=== PATIENT | female | born 1960 | race Caucasian/White ===

== ENCOUNTER 2018-05-03 12:08 | Emergency (ER) | payer OTHER, SELFPAY ==
[2018-05-03 12:21] VITALS: BP 137/74; PULSE 89; RESP 18; TEMP 36.5; O2SAT 98
--- NOTE | 2018-05-03 13:18 | ED.GENADUL_ITS ---
Discharge Plan Disposition Patient Disposition: HOME Condition: Improving Discharge Details Chief Complaint: Orthopedic Clinical Impression: Left anterior shoulder pain Primary Care Provider: Alex Flores ED Provider: Alex Villarreal Home Meds and New Rx's Prescriptions: Continued pravastatin 40 MG tablet 40 mg PO HS RF: 0 clopidogrel [Plavix] 75 MG tablet 75 mg PO DAILY RF: 0 omeprazole [Prilosec] 40 MG capsule,delayed release(DR/EC) 40 mg PO DAILY RF: 0 metoprolol tartrate 25 MG tablet 25 mg PO BID RF: 0 oxycodone-acetaminophen 1 EACH tablet 1 - 2 ea PO Q6H PRN PRN (Reason: Pain) Qty: 20 RF: 0 clonazepam [Klonopin] 1 MG tablet 1 mg PO BID PRNRF: 0 Discharge Instructions Instructions: Shoulder Pain (ED) Additional Instructions: We will placed your name on the orthopedic follow-up list. Please call tomorrow or the next day at [phone] for an appointment time. Please take medication as prescribed. Sling as needed for comfort 3-5 days time. May apply ice to area to reduce discomfort. Return if you develop a rash, worsening pain, or any other acute concerns. Continue your regular medications Medical Decision Making 57-year-old female presents with left anterior humeral/shoulder tenderness over days time. She is afebrile with normal vital signs. Reproducible tenderness on exam. Differential diagnosis includes calcific tendinitis, rotator cuff tendinitis, overuse syndrome. Does not appear consistent with frozen shoulder. X-rays without acute findings. Discussed with patient options including local Kenalog injection versus brief burst of systemic steroids. She prefers to trial pills, sling for comfort, will have her follow-up in orthopedics for recheck. She is stable for outpatient management at this time HPI General Mode of arrival: ambulatory . Date/Time Provider Initiated Documentation: 05/03/18 12:26 . Limitations to Documentation: no limitations . Information obtained by: patient . History of Present Illness 57 year old F presents to the emergency department with the chief complaint of Left shoulder pain over 3 days time, described as similar to prior episodes, Quality is described as aching, and is localized to the left and upper extremity. Patient reports no radiation. Patient started experiencing this day(s) and it has been constant. Movement improves symptom(s), Rest worsens symptoms . Patient notes no other symptoms.; denies fever/chills and rash. Patient did receive the following treatments prior to arrival, NSAID Related Data Home Medications Medication Instructions Recorded Confirmed clopidogrel [Plavix] 75 mg PO DAILY 11/07/12 05/03/18 omeprazole [Prilosec] 40 mg PO DAILY 11/07/12 05/03/18 pravastatin 40 mg PO HS 11/07/12 05/03/18 metoprolol tartrate 25 mg PO BID 08/04/13 05/03/18 clonazepam [Klonopin] 1 mg PO BID PRN 01/15/17 05/03/18 oxycodone-acetaminophen 1 - 2 ea PO Q6H PRN PRN #20 tablet 03/22/17 05/03/18 Previous Rx's Medication Instructions Recorded oxycodone-acetaminophen 1 - 2 ea PO Q6H PRN PRN #20 tablet 03/22/17 Allergies Allergy/AdvReac Type Severity Reaction Status Date / Time Sulfa (Sulfonamide Allergy Severe is[place] Unverified 05/03/18 12:27 Antibiotics) [email or web address] fluoxetine HCl [From Prozac] Allergy Intermediate Itching Unverified 05/03/18 12:27 paroxetine HCl [From Paxil] Allergy Intermediate Itching Unverified 05/03/18 12:27 sertraline HCl [From Zoloft] Allergy Intermediate Itching Unverified 05/03/18 12:27 cefaclor [From Ceclor] Allergy Unknown Unverified 05/03/18 12:27 General Stated Complaint: Orthopedic ENEIDA: 4 Review of Systems Review of Systems 8 systems reviewed and otherwise negative [facility] Social History Smoking/Tobacco Use Status: Former Tobacco Use Exam Narrative Exam Narrative: GEN: awake, alert, oriented 3. Pleasant, well groomed, interactive. HEAD: Normocephalic, atraumatic ENT: Mucous membranes moist, oropharynx unremarkable, External ear exam unremarkable EYES: PERRL, EOMI NECK: Full ROM, no MARSHALL, no menigismus CHEST/RESP: Nontender, clear to auscultation bilateral, no wheeze/rhonchi/rales CARDIOVASCULAR: RRR, no murmur, rub vik. 2+ Rad pulse bilateral ABDOMEN: Soft, nontender, no mass. +Bowel sounds EXT: Full ROM, no edema, no rash. Left anterior humeral head is tender to palpation focally. Motor is rated 5 out of 5, sensation intact throughout. Neuro: Grossly normal neurologic exam, conversant, interactive. Psych: Speech fluent, thoughts congruent, affect normal Course Vital Signs Temperature 36.5 C 05/03/18 12:21 Pulse 89 05/03/18 12:21 Respiratory Rate 18 05/03/18 12:21 Blood Pressure 137/74 05/03/18 12:21 Pulse Oximetry 98 05/03/18 12:21 Temperature 36.5 C 05/03/18 12:21 Temperature Source Skin 05/03/18 12:21 Pulse 89 05/03/18 12:21 Respiratory Rate 18 05/03/18 12:21 Respiratory Effort 05/03/18 12:25 Blood Pressure 137/74 05/03/18 12:21 Blood Pressure Position Sitting 05/03/18 12:21 Pulse Oximetry 98 05/03/18 12:21 Oxygen Delivery Method Room Air 05/03/18 12:21 Oxygen Flow Rate 0 05/03/18 12:21 Pain Level 9 05/03/18 12:21
--- NOTE | 2018-05-03 13:45 | DI.RAD_ITS ---
SYMPTOMS/DIAGNOSIS: ANTERIOR SHOULDER PAIN, ? CALCIFIC LEFT SHOULDER: Five views. No acute fracture or dislocation is seen. No radiopaque foreign bodies are seen in the soft tissues. The soft tissues are unremarkable. IMPRESSION: Negative examination.
== END 2018-05-03 14:30 | disposition home or self-care (01) ==
PROVIDERS: Emergency Provider Emergency Medicine; PCP Family Medicine
DX: M25.512 Pain in left shoulder (principal)
CPT/HCPCS: 99283; 73030; L3650

== ENCOUNTER 2021-05-26 01:50 | Outpatient (CLI) | payer OTHER, SELFPAY ==
[2021-05-26 12:15] LABS: Abs Immature Grans 0.02 10^3/uL (0.0-0.06); Absolute Basophil Count 0.03 10^3/uL (0.0-0.2); Absolute Eosinophil Count 0.08 10^3/uL (0.0-0.7); Absolute Lymphocyte Count 1.32 10^3/uL (1.2-3.4); Absolute Monocyte Count 0.55 10^3/uL (0.1-0.8); Absolute Neutrophil Count 4.29 10^3/uL (1.2-6.7); Basophils % 0.5; Eosinophils % 1.3; HCT 39.8 % (36.0-46.0); HGB 13.3 g/dL (11.2-15.7); Immature Grans % 0.3; MCH 29.7 pg (27.0-33.0); MCHC 33.4 % (32.0-36.0); MCV 88.8 fL (80-95); MPV 9.4 fL (8.0-11.0); Monocytes % 8.7; Neutrophils % 68.2; Nucleated RBC 0 %; Platelet Count 355 10^3/uL (130-400); RBC 4.48 10^6/uL (3.93-5.22); RDW 12.9 % (11.7-14.6); RDW-SD 42.1 fL; WBC 6.29 10^3/uL (4.4-10.8)
[2021-05-26 12:47] LABS: Hemoglobin A1C 5.7 % (<5.7)
[2021-05-26 13:41] LABS: ALT 34 U/L (14-59); AST 24 U/L (15-37); Albumin 4.1 g/dL (3.4-5.0); Alkaline Phosphatase 77 U/L (46-116); Anion Gap 6.9 mmol/L (3-11); BUN 6 mg/dL (7-18); Bilirubin, Total 0.4 mg/dL (0.2-1.0); CO2 31.1 mmol/L (21.0-32.0); CREATININE 0.7 mg/dL (0.55-1.02); Calcium 9.1 mg/dL (8.5-10.1); Calculated LDL 118 mg/dL (<100); Chloride 96 mmol/L (98-107); Cholesterol 210 mg/dL (<200); Folate 7.5 ng/mL (8.6-20.0); Glucose 88 mg/dL (74-106); HDL Cholesterol 50 mg/dL (40-60); Sodium 134 mmol/L (136-145); TSH (W/Ref FT4) 1.85 uIU/mL (0.36-3.74); Triglyceride 210 mg/dL (<150)
[2021-05-27 23:45] LABS: 25-Hydroxy D Total 20 ng/mL; 25-Hydroxy D2 <4.0 ng/mL; 25-Hydroxy D3 20 ng/mL
== END 2021-05-26 01:51 | disposition home or self-care (01) ==
LOC: LBO 01:50
PROVIDERS: PCP Family Medicine; Visit Provider Nurse Practitioner Psychiatric/Mental Health
DX: F32.89 Other specified depressive episodes (principal)
CPT/HCPCS: 36415; 80053; 80061; 82306; 82746; 83036; 84443; 85025

== ENCOUNTER 2021-07-11 11:30 | Emergency (ER) | payer OTHER, SELFPAY ==
[2021-07-11 11:34] VITALS: BP 140/89; PULSE 96; RESP 22; TEMP 35.6; O2SAT 91
--- NOTE | 2021-07-11 11:45 | DI.RAD_ITS ---
Exam(s) XR HUMERUS RT XR SHOULDER RT COMPLETE 2+V EXAM: XR SHOULDER RT COMPLETE 2+V CLINICAL HISTORY: fall, prox humeral pain TECHNIQUE: COMPARISON: CR LEFT SHOULDER COMPLETE from 11/07/2012 CR XR HUMERUS RT from 07/11/2021 FINDINGS: Three views of the shoulder and two views of the humerus were obtained. There is a nondisplaced frac ture of the greater tuberosity of the humerus. No additional fracture seen. No evidence of a glenoh umeral dislocation. IMPRESSION: Nondisplaced humeral greater tuberosity fracture. RADIATION DOSE DELIVERED: Total DLP
[2021-07-11] MEDS: Ondansetron O.D.T. 4 MG TABEF PO (12:06)
[2021-07-11] MEDS: oxyCODONE 5 mg/Acetaminophen 325 mg TAB 1 TAB PO (12:06)
--- NOTE | 2021-07-11 15:03 | ED.GENADUL_ITS ---
Discharge Plan Disposition Patient Disposition: HOME Condition: Stable Discharge Details Clinical Impression: Fracture, humerus Primary Care Provider: Alex Flores ED Provider: Percy Nicole Home Meds and New Rx's Prescriptions: No Action pravastatin 40 MG tablet 40 mg PO HS 0RF clopidogrel [Plavix] 75 MG tablet 75 mg PO DAILY 0RF omeprazole [Prilosec] 40 MG capsule,delayed release(DR/EC) 40 mg PO DAILY 0RF metoprolol tartrate 25 MG tablet 25 mg PO BID 0RF oxycodone-acetaminophen 1 EACH tablet 1 - 2 ea PO Q6H PRN PRN (Reason: Pain) Qty: 20 0RF clonazepam [Klonopin] 1 MG tablet 1 mg PO BID PRN0RF Discharge Instructions Instructions: Proximal Humerus Fracture (ED) Additional Instructions: Please follow-up with orthopedic team as scheduled. Ice, rest, ibuprofen and acetaminophen for pain. Return to the emergency department if you develop uncontrolled pain change in sensation or color of the arm. Medical Decision Making 60-year-old female presents after mechanical fall from standing tripped over her dog fell onto an outstretched arm, pain to lateral right shoulder. Point tenderness over shoulder, no ecchymosis no deformity, neurovascular exam of limb intact. No signs of head thoracic or abdominal trauma. Behaving appropriately. X-ray showing tuberosity fracture of right humerus. Patient placed in sling, analgesia, ice rest, will be given orthopedic referral. Home care instructions and return precautions HPI General Date/Time Provider Initiated Documentation: 07/11/21 11:58 . HPI Narrative: 60-year-old female presents after mechanical fall from standing tripped over her dog and outstretched right arm, pain to her right shoulder. Did not hit head no loss of conscious no trouble breathing no chest pain no abdominal pain. Related Data Home Medications Medication Instructions Recorded Confirmed clopidogrel 75 mg tablet (Plavix) 75 mg PO DAILY 11/07/12 05/03/18 omeprazole 40 mg capsule,delayed 40 mg PO DAILY 11/07/12 05/03/18 release (Prilosec) pravastatin 40 mg tablet 40 mg PO HS 11/07/12 05/03/18 metoprolol tartrate 25 mg tablet 25 mg PO BID 08/04/13 05/03/18 clonazepam 1 mg tablet (Klonopin) 1 mg PO BID PRN 01/15/17 05/03/18 oxycodone-acetaminophen 5 mg-325 1 - 2 ea PO Q6H PRN PRN #20 tablet 03/22/17 05/03/18 mg tablet Previous Rx's Medication Instructions Recorded oxycodone-acetaminophen 5 mg-325 1 - 2 ea PO Q6H PRN PRN #20 tablet 03/22/17 mg tablet Allergies Allergy/AdvReac Type Severity Reaction Status Date / Time Sulfa (Sulfonamide Allergy Severe [place] Unverified 05/03/18 12:27 Antibiotics) [email or web address] fluoxetine HCl [From Prozac] Allergy Intermediate Itching Unverified 05/03/18 12:27 paroxetine HCl [From Paxil] Allergy Intermediate Itching Unverified 05/03/18 12:27 sertraline HCl [From Zoloft] Allergy Intermediate Itching Unverified 05/03/18 12:27 cefaclor [From Ceclor] Allergy Unknown Unverified 05/03/18 12:27 General Stated Complaint: Orthopedic ENEIDA: 3 Review of Systems Narrative: Review of Systems Constitutional: negative Eyes: negative ENT: negative Cardiovascular: negative Respiratory: negative Gastrointestinal: negative : negative Musculoskeletal: Right shoulder pain Skin: negative Neurologic: negative Psych: negative PFSH All Active Problems (Updated 07/11/21 @ 15:06 by Percy Nicole MD) Fracture, humerus (Acute) Social History Smoking/Tobacco Use Status: Former Tobacco Use Smoking risk assessment performed?: Yes Alcohol Intake: never Drug use: Never Substance use type: does not use Do you feel safe at home: Yes Do you feel safe in your relationship?: Yes Exam Narrative Exam Narrative: Physical Examination General: alert, awake, cooperative, resting comfortably, no acute distress HEENT: normocephalic, atraumatic; PERRL, EOM intact, conjunctiva normal; no nasal discharge; moist mucous membranes, oral and pharyngeal mucosa normal, tolerating secretions Neck: supple, trachea midline; full ROM Chest: normal to inspection Respiratory: normal respiratory effort, speaking in full sentences, clear to auscultation, no wheezing, rales or rhonchi Cardiac: regular rate, regular rhythm, S1S2 intact, no murmurs rubs or gallops GI: abdomen soft, non-tender, non-distended; no palpable mass or hepatosplenomegaly Skin: no lesions, rashes or trauma appreciated Neuro: AAOx3, normal speech, moving all extremities Extremities: Right upper extremity: Point tenderness over lateral shoulder, no crepitus or deformity no break in the skin no ecchymosis, unable to range shoulder due to pain, able to range elbow wrist fingers and hands, median radial and ulnar nerve distribution intact, soft compartments, radial pulse intact. Psych: Appropriate mood and affect Course Vital Signs Vital signs: Vital Signs Temperature 35.6 C L 07/11/21 11:34 Pulse 96 H 07/11/21 11:34 Respiratory Rate 22 07/11/21 11:34 Blood Pressure 140/89 07/11/21 11:34 Pulse Oximetry 91 L 07/11/21 11:34 Temperature 35.6 C L 07/11/21 11:34 Temperature Source Tympanic 07/11/21 11:34 Pulse 96 H 07/11/21 11:34 Respiratory Rate 22 07/11/21 11:34 Respiratory Effort Non-Labored 07/11/21 11:54 Blood Pressure 140/89 07/11/21 11:34 Blood Pressure Position Sitting 07/11/21 11:34 Pulse Oximetry 91 L 07/11/21 11:34 Oxygen Delivery Method Room Air 07/11/21 11:34 Oxygen Flow Rate 0 07/11/21 11:34 Pain Level 10 07/11/21 12:06
[2021-07-11 15:15] VITALS: BP 116/86; PULSE 104; TEMP 36.5; O2SAT 98
[2021-07-11] MEDS: Ketorolac 15 MG/ML VIAL IM (15:15)
== END 2021-07-11 16:23 | disposition home or self-care (01) ==
PROVIDERS: Emergency Provider Emergency Medicine; PCP Family Medicine
DX: S42.254A Nondisplaced fracture of greater tuberosity of right humerus, initial encounter for closed fracture (principal); W01.0XXA Fall on same level from slipping, tripping and stumbling without subsequent striking against object, initial encounter
CPT/HCPCS: 96372; 99284; 73030; 73060; 99283; J1885

== ENCOUNTER 2021-07-28 08:44 | Outpatient (CLI) | payer OTHER, SELFPAY ==
--- NOTE | 2021-07-28 08:15 | DI.RAD_ITS ---
Exam(s) XR SHOULDER RT COMPLETE 2+V EXAM: XR SHOULDER RT COMPLETE 2+V CLINICAL HISTORY: follow up. TECHNIQUE: 2D digital imaging was performed. COMPARISON: CR XR SHOULDER RT COMPLETE 2+V from 07/11/2021 FINDINGS: 3 views Again noted is a nondisplaced fracture of the greater tuberosity. There is also subtle suggestion th at there is an element of nondisplaced fracture in the humeral neck., also nondisplaced. There is no dislocation of glenohumeral joint. No evidence of glenoid fossa fracture. AC joint and acromion ap pear unremarkable. IMPRESSION: DATA REPOSITORY: RADIATION DOSE DELIVERED:
== END 2021-07-28 08:45 | disposition home or self-care (01) ==
LOC: DIORS 08:45
PROVIDERS: PCP Family Medicine; Referring Provider Family Medicine; Visit Provider Physician Assistant Surgical
DX: S42.254D Nondisplaced fracture of greater tuberosity of right humerus, subsequent encounter for fracture with routine healing (principal); W01.0XXD Fall on same level from slipping, tripping and stumbling without subsequent striking against object, subsequent encounter
CPT/HCPCS: 73030

== ENCOUNTER 2022-12-31 10:19 | Emergency (ER) | payer OTHER, SELFPAY ==
[2022-12-31 10:23] VITALS: BP 144/72; PULSE 89; RESP 18; TEMP 36.7; O2SAT 96
--- NOTE | 2022-12-31 10:43 | W.ED.GENAD ---
Discharge Plan Disposition Patient Disposition: Home Condition: Good Discharge Details Clinical Impression: Arm pain Primary Care Provider: Alex Flores ED Provider: Jo Ann Bazan Home Meds and New Rx's Prescriptions: No Action cyclobenzaprine 5 mg tablet 5 mg PO BID PRN (Reason: muscle spasm) Qty: 6 0RF pravastatin 40 MG tablet 40 mg PO HS clopidogrel [Plavix] 75 MG tablet 75 mg PO DAILY omeprazole [Prilosec] 40 MG capsule,delayed release(DR/EC) 40 mg PO DAILY metoprolol tartrate 25 MG tablet 25 mg PO BID oxycodone-acetaminophen 1 EACH tablet 1 - 2 ea PO Q6H PRN PRN (Reason: Pain) Qty: 20 0RF lidocaine [Lidoderm] 5 % adhesive patch,medicated 1 patch topical DAILY PRN (Reason: pain, moderate) Qty: 1 0RF Rx Instructions: leave on most painful area for up to 12 hrs clonazepam [Klonopin] 1 MG tablet 1 mg PO BID PRN Discharge Instructions Instructions: Paresthesia (ED) Additional Instructions: Take Tylenol and ibuprofen over the counter as needed for pain; follow the directions on the bottle. Call your primary care doctor today to schedule an appointment to follow up on your visit here. Return to the emergency department for new or worsening symptoms. Referrals: Alex Flores [Primary Care Provider] - Medical Decision Making 62yo F with hx prior CVA, depression, presenting for 2 months of left arm pain and parasthesias, worst first thing in the morning and improve throughout the day. Vital signs reassuring, normal neurologic exam. Not concerning for CVA/stroke. On exam good strength and sensation in LUE, reproducible symptoms with compression at elbow suggestive of cubital tunnel syndrome. Given IM toradol for pain. With reassuring exam and several months of symptoms, would not further workup on an emergent basis. Advised not wearing tight jewelry on LUE (patient did have tight beaded bracelet on left wrist) and keeping arm straight while sleeping, instructed to followup with PCP. Discharged home; discharge instructions including return precautions were reviewed with patient who verbalized understanding. All questions were answered and they are in full agreement with the plan. HPI General Mode of arrival: ambulatory. Date/Time Provider Initiated Documentation: 12/31/22 10:29. Limitations to Documentation: no limitations. Information obtained by: patient. HPI Narrative: 62yo F with hx prior CVA, depression, presenting for 2 months of left arm pain and parasthesias. Symptoms are worse in the morning and usually resolve as the day progresses. Pain is sharp/stinging, radiates down her forearm and into her wrist and hand. Not sure if it favors once side of the hand or the other. Not relieved by home tylenol. Some associated numbness in the hand. Cannot recall any injury to the area. Tried to see her PCP today but was unable to get in. She is otherwise inher usual state of health with no fevers, chills, rash, nausea, vomiting, abdominal pain, weakness, or other concerns. Related Data Home Medications Medication Instructions Recorded Confirmed clopidogrel 75 mg tablet (Plavix) 75 mg PO DAILY 11/07/12 07/28/21 omeprazole 40 mg capsule,delayed 40 mg PO DAILY 11/07/12 07/28/21 release (Prilosec) pravastatin 40 mg tablet 40 mg PO HS 11/07/12 07/28/21 metoprolol tartrate 25 mg tablet 25 mg PO BID 08/04/13 07/28/21 clonazepam 1 mg tablet (Klonopin) 1 mg PO BID PRN 01/15/17 07/28/21 oxycodone-acetaminophen 5 mg-325 1 - 2 ea PO Q6H PRN PRN Pain #20 03/22/17 07/28/21 mg tablet tabs lidocaine 5 % topical patch 1 patch topical DAILY PRN pain, 07/11/21 07/28/21 (Lidoderm) moderate #1 ea cyclobenzaprine 5 mg tablet 5 mg PO BID PRN muscle spasm #6 07/28/21 07/28/21 tabs Previous Rx's Medication Instructions Recorded oxycodone-acetaminophen 5 mg-325 1 - 2 ea PO Q6H PRN PRN Pain #20 03/22/17 mg tablet tabs lidocaine 5 % topical patch 1 patch topical DAILY PRN pain, 07/11/21 (Lidoderm) moderate #1 ea cyclobenzaprine 5 mg tablet 5 mg PO BID PRN muscle spasm #6 07/28/21 tabs Allergies Allergy/AdvReac Type Severity Reaction Status Date / Time Sulfa (Sulfonamide Allergy Severe [place] Unverified 07/28/21 08:04 Antibiotics) phi fluoxetine HCl [From Prozac] Allergy Intermediate Itching Unverified 07/28/21 08:04 paroxetine HCl [From Paxil] Allergy Intermediate Itching Unverified 07/28/21 08:04 sertraline HCl [From Zoloft] Allergy Intermediate Itching Unverified 07/28/21 08:04 cefaclor [From Ceclor] Allergy Unknown Unverified 07/28/21 08:04 General Stated Complaint: Orthopedic ENEIDA: 4 Review of Systems Narrative: see HPI PFSH All Active Problems (Updated 12/31/22 @ 10:43 by Jo Ann Bazan MD) Arm pain (Acute) Social History Smoking/Tobacco Use Status: Former Tobacco Use Smoking risk assessment performed?: Yes Alcohol Intake: never Drug use: Never Substance use type: does not use Do you feel safe at home: Yes Do you feel safe in your relationship?: Yes Exam Narrative Exam Narrative: General: Alert, well appearing, well nourished, in no acute distress. Head: Normocephalic, atraumatic Neck: Trachea midline, Neck supple. Cardiac: No cyanosis. Resp: No respiratory distress. Speaking in full sentences. . Abd: Non-distended Extremities: No deformities. Neurologic: GCS 15. Moves all extremities freely against gravity. 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 Sensation to light touch intact throughout LUE. Reproducible pain with compression at elbow. Course Vital Signs Vital signs: Vital Signs Temperature 36.7 C 12/31/22 10:23 Pulse 89 12/31/22 10:23 Respiratory Rate 18 12/31/22 10:23 Blood Pressure 144/72 H 12/31/22 10:23 Pulse Oximetry 96 12/31/22 10:23 Temperature 36.7 C 12/31/22 10:23 Temperature Source Temporal Artery Scan 12/31/22 10:23 Pulse 89 12/31/22 10:23 Respiratory Rate 18 12/31/22 10:23 Respiratory Effort Normal, Non-Labored 12/31/22 10:42 Blood Pressure 144/72 H 12/31/22 10:23 Blood Pressure Position Sitting 12/31/22 10:23 Pulse Oximetry 96 12/31/22 10:23 Oxygen Delivery Method Room Air 12/31/22 10:23 Oxygen Flow Rate 0 12/31/22 10:23
[2022-12-31] MEDS: Acetaminophen 500 MG TAB 1000 MG PO (10:52)
[2022-12-31] MEDS: Ketorolac 15 MG/ML VIAL IM (10:53)
== END 2022-12-31 11:03 | disposition home or self-care (01) ==
PROVIDERS: Emergency Provider Student in an Organized Health Care Education/Training Program; PCP Family Medicine
DX: R20.2 Paresthesia of skin; Z86.73 Personal history of transient ischemic attack (TIA), and cerebral infarction without residual deficits
CPT/HCPCS: 96372; 99284; 99283; J1885

== ENCOUNTER 2024-06-12 10:01 | Emergency (ER) | payer OTHER, SELFPAY ==
[2024-06-12 10:48] VITALS: BP 133/75; PULSE 96; RESP 14; TEMP 37.2; O2SAT 89
--- NOTE | 2024-06-12 11:40 | DI.RAD_ITS ---
Exam(s) XR CHEST 2V PA LATERAL EXAM: XR CHEST 2V PA LATERAL CLINICAL HISTORY: sob, cough TECHNIQUE: 2D digital imaging was performed of the chest. Two images were obtained. PA and lateral views were obtained. COMPARISON: CR CHEST 2 VIEWS PA,LAT from 01/06/2013 FINDINGS: MEDIASTINUM: Normal. HEART: Normal. PULMONARY VASCULATURE: Normal. LUNGS: Clear. PLEURAL SPACE: No pleural effusion or pneumothorax. There is unchanged scarring in the right costophr enic angle. BONE:Within normal limits for the patient's age. OTHER FINDINGS:Normal. IMPRESSION: No acute pulmonary findings. DATA REPOSITORY: RADIATION DOSE DELIVERED:
[2024-06-12 12:53] LABS: COVID-19 PCR Negative (Negative); Influenza A PCR Positive (Negative); Influenza B PCR Negative (Negative); RSV PCR Negative (Negative)
[2024-06-12 12:54] LABS: Source Nasopharynx
--- NOTE | 2024-06-12 13:16 | ED.GENADUL_ITS ---
Discharge Plan Disposition Patient Disposition: Home Condition: Stable Discharge Details Clinical Impression: Influenza A Primary Care Provider: Alex Flores ED Provider: Viral Arrieta Home Meds and New Rx's Prescriptions: New oseltamivir 75 mg capsule 75 mg PO BID 5 Days Qty: 10 0RF Continued cyclobenzaprine 5 mg tablet 5 mg PO BID PRN (Reason: muscle spasm) Qty: 6 0RF pravastatin 40 MG tablet 40 mg PO HS clopidogrel [Plavix] 75 MG tablet 75 mg PO DAILY omeprazole [Prilosec] 40 MG capsule,delayed release(DR/EC) 40 mg PO DAILY metoprolol tartrate 25 MG tablet 25 mg PO BID clonazepam [Klonopin] 1 MG tablet 1 mg PO BID PRN buspirone 10 mg tablet 10 mg PO BID desvenlafaxine succinate 100 mg tablet extended release 24 hr 100 mg PO DAILY acyclovir 400 mg tablet 400 mg PO BID Discharge Instructions Instructions: Albuterol, Oseltamivir, Flu, Adult ED Additional Instructions: You were seen in the emergency department for your respiratory infection for the past 2 days, he tested positive for influenza, have sent a medication called Tamiflu that will shorten the duration of the flu. Please use therapeutic dosing of Tylenol (acetamenophen) & Advil (ibuprofen) in an alternating fashion as follows: Take 1000mg of Tylenol every 6 hours without missing doses- that is 4 times per day. The daily maximum dosing of Tylenol is 4000mg Please note that some common cold medications & prescription pain medications may contain acetamenophen and you need to read OTC drug labels and factor that in to maximum daily dosings. Use the provided inhaler for symptomatic shortness of breath. Please return for any increasing chest pain or respiratory distress or any other emergent concern. Referrals: Alex Flores [Primary Care Provider] - Discharge Data Discharge Date/Time-TO BE ENTERED AT DEPARTURE: 06/12/24 13:45 HPI General Date/Time Provider Initiated Documentation: 06/12/24 10:58 . HPI Narrative: 63 year-old female presents to ED today by POV/ambulating with a chief complaint of shortness of breath, productive cough with clear/white phlegm, headache, body aches, feels she may have pneumonia with onset 2 days ago. Quality described as mild SOB, generalized malaise and body aches, no radiation to respiratory distress, chest pain, nausea/vomiting, diarrhea, abdominal pain. Severity is described as moderate. Palliating factors include nothing specific attempted. Provoking factors include nothing specific. Events leading up to the incident/Associated Symptoms: Patient did not receive flu shot this year. Patient not anticoagulated. Related Data Home Medications ?Medication ?Instructions ?Recorded ?Confirmed clopidogrel 75 mg tablet (Plavix) 75 mg PO DAILY 11/07/12 06/12/24 omeprazole 40 mg capsule,delayed 40 mg PO DAILY 11/07/12 06/12/24 release (Prilosec) pravastatin 40 mg tablet 40 mg PO HS 11/07/12 06/12/24 metoprolol tartrate 25 mg tablet 25 mg PO BID 08/04/13 06/12/24 clonazepam 1 mg tablet (Klonopin) 1 mg PO BID PRN 01/15/17 06/12/24 cyclobenzaprine 5 mg tablet 5 mg PO BID PRN muscle spasm #6 07/28/21 06/12/24 tabs acyclovir 400 mg tablet 400 mg PO BID 06/12/24 06/12/24 buspirone 10 mg tablet 10 mg PO BID 06/12/24 06/12/24 desvenlafaxine succinate 100 mg 100 mg PO DAILY 06/12/24 06/12/24 tablet,extended release 24 hr oseltamivir 75 mg capsule 75 mg PO BID 5 days #10 caps 06/12/24 Previous Rx's ?Medication ?Instructions ?Recorded cyclobenzaprine 5 mg tablet 5 mg PO BID PRN muscle spasm #6 07/28/21 tabs oseltamivir 75 mg capsule 75 mg PO BID 5 days #10 caps 06/12/24 Allergies Allergy/AdvReac Type Severity Reaction Status Date / Time Sulfa (Sulfonamide Allergy Severe [place] Unverified 06/12/24 10:52 Antibiotics) johnsons fluoxetine HCl (From Prozac) Allergy Intermediate Itching Unverified 06/12/24 10:52 paroxetine HCl (From Paxil) Allergy Intermediate Itching Unverified 06/12/24 10:52 sertraline HCl (From Zoloft) Allergy Intermediate Itching Unverified 06/12/24 10:52 cefaclor (From Ceclor) Allergy Unknown Unknown Unverified 06/12/24 10:52 General Stated Complaint: RespSymp ENEIDA: 3 Review of Systems All systems reviewed & are unremarkable except as noted in HPI and below Exam Narrative Exam Narrative: GENERAL APPEARANCE: Well-nourished, non-toxic, awake and alert, atraumatic, no acute distress. SKIN: Warm, pink, dry, intact, without rashes/lesions/ulcerations. HEAD: Normocephalic, atraumatic, normal hair distribution for gender/age. EYES: Normal conjunctiva, no exudates on lids/lashes. ENT: Nares patent, no circumoral cyanosis, no facial swelling NECK: Supple, trachea midline, painless cervical ROM. LUNGS/CHEST: Lungs CTA bilaterally, non-labored respirations, normal A/P diameter, symmetrical expansion, no chest wall deformity HEART (CV/PV): Regular rate and rhythm without murmur, no peripheral edema, no JVD. ABDOMEN: Soft, non-distended, no guarding. MSK: Normal ROM, no swelling/deformity to bilateral UEs or LEs, moving all extremities without weakness, no cyanosis, spine midline without tenderness, normal curvature. NEURO: Mental Status AAOx4 - alert to person, place, time, events No facial droop, no forehead involvement. Motor: No focal weakness - strength 5/5 in bilateral UEs and LEs, proximal and distal, symmetric. Sensory: sensation intact to light touch globally. Gait normal: patient ambulated without ataxia into ED room. PSYCH: euthymic, cooperative, pleasant, appropriate speech Course Vital Signs Vital signs: Vital Signs Temperature 37.2 C 06/12/24 10:48 Pulse 96 H 06/12/24 10:48 Respiratory Rate 14 06/12/24 10:48 Blood Pressure 133/75 06/12/24 10:48 Pulse Oximetry 89 L 06/12/24 10:48 Temperature 37.2 C 06/12/24 10:48 Temperature Source Oral 06/12/24 10:48 Pulse 96 H 06/12/24 10:48 Respiratory Rate 14 06/12/24 10:48 Blood Pressure 133/75 06/12/24 10:48 Blood Pressure Position Sitting 06/12/24 10:48 Pulse Oximetry 89 L 06/12/24 10:48 Oxygen Delivery Method Room Air 06/12/24 10:48 Oxygen Flow Rate 0 06/12/24 10:48 Pain Level 7 06/12/24 10:48 Lab/Test Results Lab/Test Results: Laboratory Tests Range/Units 06/12/24 12:10 COVID-19 Source Nasopharynx SARS-CoV-2 (PCR) (Negative) Negative Influenza Type A (PCR) (Negative) Positive A Influenza Type B (PCR) (Negative) Negative RSV (PCR) (Negative) Negative Medical Decision Making This dictation utilizes [id number] dictation software and may contain unedited grammatical errors. 63 year-old female presents to ED today by POV/ambulating with a chief complaint of shortness of breath, productive cough with clear/white phlegm, headache, body aches, feels she may have pneumonia with onset 2 days ago. Quality described as mild SOB, generalized malaise and body aches, no radiation to respiratory distress, chest pain, nausea/vomiting, diarrhea, abdominal pain. Severity is described as moderate. Palliating factors include nothing specific attempted. Provoking factors include nothing specific. Events leading up to the incident/Associated Symptoms: Patient did not receive flu shot this year. Patients' medical history: Hyperlipidemia. Family and social history: Noncontributory. Pertinent exam findings / vital signs include lungs CTA, 89% at triage but 95% and stable with low-grade fever when roomed, no respiratory distress, benign abdomen, nontoxic. Differential / pathologies of concern include viral syndrome, influenza, pneumonia, unlikely sepsis, no respiratory distress or respiratory failure. Diagnostic studies of: -XR Chest, Covid/Flu/RSV PCR. -XR Chest clear -positive for Flu A Interventions of: -Rx for tamiflu. ED Course/Assessment/Plan: 63-year-old female presents with generalized viral syndrome, positive for flu with no respiratory distress and clear chest x-ray, counseled her on Tamiflu as well as adequate dosing Tylenol and other OTC cold medicines, counseled on strict return criteria for any respiratory distress or other emergent concerns. Findings not consistent with respiratory failure, PE, pneumonia. Disposition of influenza A. Patient verbalized understanding of the plan and return to ED criteria and engaged in shared decision making. Medical Records Medical records reviewed: Yes I reviewed the patient's medical records. Imaging Data Radiologic Study: Attestation: I personally reviewed and interpreted this imaging study as follows: Imaging: X-Ray Radiologist's impression: EXAM: XR CHEST 2V PA LATERAL CLINICAL HISTORY: sob, cough TECHNIQUE: 2D digital imaging was performed of the chest. Two images were obtained. PA and lateral views were obtained. COMPARISON: CR CHEST 2 VIEWS PA,LAT from 01/06/2013 FINDINGS: MEDIASTINUM: Normal. HEART: Normal. PULMONARY VASCULATURE: Normal. LUNGS: Clear. PLEURAL SPACE: No pleural effusion or pneumothorax. There is unchanged scarring in the right costophrenic angle. BONE:Within normal limits for the patient's age. OTHER FINDINGS:Normal. IMPRESSION: No acute pulmonary findings. Lab Data Lab results reviewed: Yes I reviewed the patient's lab results. Labs: Laboratory Tests Range/Units 06/12/24 12:10 COVID-19 Source Nasopharynx SARS-CoV-2 (PCR) (Negative) Negative Influenza Type A (PCR) (Negative) Positive A Influenza Type B (PCR) (Negative) Negative RSV (PCR) (Negative) Negative Quality:SDOH Health Related Social Needs: No Data to Display PFSH All Active Problems (Updated 06/12/24 @ 13:20 by SWATI Kimble) Influenza A (Acute) Social History Smoking/Tobacco Use Status: Former Tobacco Use Smoking risk assessment performed?: Yes Alcohol Intake: never Drug use: Never Substance use type: does not use Do you feel safe at home: Yes Do you feel safe in your relationship?: Yes
[2024-06-12 13:22] VITALS: BP 138/85; PULSE 97; TEMP 37.7; O2SAT 95
[2024-06-12 13:34] VITALS: BP 138/85; PULSE 97; RESP 20; TEMP 37.7; O2SAT 95
[2024-06-12] MEDS: Albuterol HFA 8 GM 60 PUFF INH IH (13:37)
[2024-06-12] MEDS: Inhaler, Assist Device 1 EACH MC (13:37)
[2024-06-12 13:43] VITALS: BP 138/85; PULSE 97; RESP 20; TEMP 37.7; O2SAT 95
== END 2024-06-12 13:45 | disposition home or self-care (01) ==
PROVIDERS: Emergency Provider Physician Assistant; PCP Family Medicine
DX: J10.1 Influenza due to other identified influenza virus with other respiratory manifestations (principal)
CPT/HCPCS: 87637; 99284; 71046